=== PATIENT | male | born 1985 | race Caucasian/White ===

== ENCOUNTER 2019-11-03 05:36 | Emergency (ER) | payer SELFPAY ==
[~2019-11-03] VITALS: Ht 165.1 cm; Wt 74.8 kg
[2019-11-03 05:38] VITALS: BP 147/88
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
--- NOTE | 2019-11-03 05:58 | NUR ---
PATIENT EXAMINED BY DR. YUSUF. PATIENT MEDICALLY CLEARED AND RELEASED IN CUSTODY IN STABLE CONDITION. ORIGINAL PRE-BOOK FORM GIVEN TO OFFICER EDENILSON.
== END 2019-11-03 05:58 ==
LOC: MED 05:36
DX: Z02.89 Encounter for other administrative examinations (principal)
CPT/HCPCS: 99283